=== PATIENT | male | born 1955 | race Caucasian/White ===

== ENCOUNTER 2017-04-17 05:35 | Emergency (ER) | payer OTHER ==
[2017-04-17 07:00] LABS: CARBON DIOXIDE 28.6 mmol/L (21-32); CHLORIDE SERUM 98 mmol/L (98-107); CREATININE SERUM 1.1 mg/dL (0.7-1.3); GFR1 > 60 mL/min; SODIUM SERUM 133 mmol/L (136-145)
[2017-04-17 07:11] LABS: GLUCOSE SERUM 571 mg/dL (74-106)
[2017-04-17 08:36] VITALS: BP 176/97
== END 2017-04-17 08:36 | disposition other institution (70) ==
LOC: ED 05:35
PROVIDERS: Emergency Medicine
DX: E11.65 Type 2 diabetes mellitus with hyperglycemia (principal); I10 Essential (primary) hypertension; F17.210 Nicotine dependence, cigarettes, uncomplicated; F15.90 Other stimulant use, unspecified, uncomplicated; Z79.84 Long term (current) use of oral hypoglycemic drugs; Z79.4 Long term (current) use of insulin
CPT/HCPCS: J1815; J7030

== ENCOUNTER 2017-04-17 05:35 | Emergency (ER) | payer OTHER | END 2017-04-17 08:36 | disposition other institution (70) | LOC: ED 05:35 | DX: Z02.89 Encounter for other administrative examinations (principal) | CPT/HCPCS: J7030 ==